=== PATIENT | male | born 1980 | race Caucasian/White ===

== ENCOUNTER 2020-12-12 06:52 | Emergency (ER) | payer MEDICAID ==
[~2020-12-12] VITALS: Ht 180.3 cm; Wt 90.7 kg
[2020-12-12] MEDS ORDERED: keppra PO (07:09)
--- NOTE | 2020-12-12 07:10 | NUR ---
[facility] in room speaking w/ pt.
--- NOTE | 2020-12-12 07:20 | NUR ---
DR Sweeney at the bedside for MSE.
[2020-12-12] MEDS ORDERED: levETIRAcetam 500 MG TABLET PO STA (07:25)
[2020-12-12] MEDS ORDERED: PHENYTOIN SODIUM EXTENDED 100 MG CAPSULE.SA PO STA (07:25)
[2020-12-12] MEDS ORDERED: PHENYTOIN SODIUM EXTENDED 100 MG CAPSULE.SA PO ONE (07:39)
[2020-12-12] MEDS ORDERED: levETIRAcetam 250 MG TABLET ONE (07:39)
[2020-12-12] MEDS ORDERED: ONDANSETRON ODT 4 MG TAB.RAPDIS SL ONE (08:00)
[2020-12-12] MEDS ORDERED: PHEN100C4 PO (08:42)
[2020-12-12] MEDS ORDERED: LEVE1000 PO (08:42)
[2020-12-12] MEDS ORDERED: ONDANSETRON ODT 4 MG TAB.RAPDIS ONE (08:57)
--- NOTE | 2020-12-12 09:00 | NUR ---
Patient discharged to home in stable condition. Written and verbal after care instructions given. Patient verbalizes understanding of instructions. Stressed follow up or return to ER for worsening s/s. Pt left ER w/ steady gait.
[2020-12-12 09:03] VITALS: BP 139/69
== END 2020-12-12 09:03 | disposition home or self-care (01) ==
LOC: ER 06:56
DX: G40.909 Epilepsy, unspecified, not intractable, without status epilepticus (principal); Z79.899 Other long term (current) drug therapy
CPT/HCPCS: A4663; Q0162